=== PATIENT | female | born 1980 | race Two or more races ===

== ENCOUNTER 2021-10-25 10:47 | Emergency (ER) | payer OTHER ==
[~2021-10-25] VITALS: Ht 165.1 cm; Wt 77.1 kg
== END 2021-10-25 17:32 ==
LOC: ER 10:47
DX: S90.01XA Contusion of right ankle, initial encounter (principal); X58.XXXA Exposure to other specified factors, initial encounter; Y93.89 Activity, other specified; Y92.018 Other place in single-family (private) house as the place of occurrence of the external cause; Y99.9 Unspecified external cause status

== ENCOUNTER 2021-11-07 13:25 | Outpatient (CLI) | payer OTHER | END 2021-11-07 13:36 | disposition home or self-care (01) | LOC: RAD 13:25 | PROVIDERS: ATTEND Orthopaedic Surgery | DX: S93.621A Sprain of tarsometatarsal ligament of right foot, initial encounter (principal) ==